=== PATIENT | female | born 1975 ===

== ENCOUNTER 2019-01-18 10:13 | Outpatient (CLI) | payer OTHER | END 2019-01-18 10:17 | disposition home or self-care (01) | LOC: LAB 10:13 | DX: J11.1 Influenza due to unidentified influenza virus with other respiratory manifestations (principal) ==

== ENCOUNTER 2019-04-11 09:46 | Outpatient (CLI) | payer OTHER | END 2019-04-11 09:56 | disposition home or self-care (01) | LOC: LAB 09:46 | DX: J11.1 Influenza due to unidentified influenza virus with other respiratory manifestations (principal); J06.9 Acute upper respiratory infection, unspecified ==